=== PATIENT | male | born 1980 | race Caucasian/White ===

== ENCOUNTER 2016-12-30 12:25 | Emergency (ER) | payer MEDICAID ==
--- NOTE | 2016-12-30 13:01 | ER Document Report ---
ED Medical Screen (RME) - General Chief Complaint: Skin Sore(s) Stated Complaint: LEG WOUNDS Time seen by provider: 12:59 Mode of Arrival: Ambulatory Information source: Patient Notes: 36 yo male with chronic lymph edema for 12 years c/o worsening pain and sores since he quit going to the wound care clinic 1 year ago. No fever. No hx DM> TRAVEL OUTSIDE OF THE [place] IN LAST 30 DAYS: No - Related Data Allergies/Adverse Reactions: alprazolam [From Xanax] Allergy (Verified 12/30/16 12:40) Abnormal behavior trazodone [Trazodone] Allergy (Verified 12/30/16 12:40) Abnormal behavior Past Medical History - Past Medical History Cardiac Medical History: Reports: Hx Hypercholesterolemia, Hx Hypertension, Hx Peripheral Vascular Disease, Hx Pulmonary Embolism Denies: Hx Coronary Artery Disease, Hx Heart Attack Pulmonary Medical History: Denies: Hx Asthma, Hx Bronchitis, Hx COPD, Hx Pneumonia Neurological Medical History: Denies: Hx Cerebrovascular Accident Renal/ Medical History: Denies: Hx Peritoneal Dialysis GI Medical History: Reports: Hx Gastroesophageal Reflux Disease Musculoskeltal Medical History: Reports Hx Arthritis - osteo Psychiatric Medical History: Reports: Hx Bipolar Disorder, Hx Depression, Hx Schizophrenia - Immunizations Hx Diphtheria, Pertussis, Tetanus Vaccination: Yes Physical Exam - Vital signs Vitals: Temp Pulse Resp BP Pulse Ox 98.5 F 92 20 144/96 H 97 12/30/16 12:41 12/30/16 12:41 12/30/16 12:41 12/30/16 12:41 12/30/16 12:41 Course - Vital Signs Vital signs: Temp Pulse Resp BP Pulse Ox 98.5 F 92 20 144/96 H 97 12/30/16 12:41 12/30/16 12:41 12/30/16 12:41 12/30/16 12:41 12/30/16 12:41
[2016-12-30 13:37] LABS: ABSOLUTE EOSINOPHILS # (AUTO) 0.1 10^3/uL (0.0-0.6); ABSOLUTE LYMPHOCYTES (AUTO) 1.2 10^3/uL (0.5-4.7); ABSOLUTE MONOCYTES (AUTO) 0.5 10^3/uL (0.1-1.4); ABSOLUTE NEUT (AUTO) 4.6 10^3/uL (1.7-8.2); BASOPHILS % (AUTO) 0.4 % (0-2); EOSINOPHILS % (AUTO) 1.5 % (0-6); HEMATOCRIT 37.4 % (37.9-51.0); HEMOGLOBIN 12.3 g/dL (13.5-17.0); HGB HCT DIFFERENCE -0.5; LYMPHOCYTES % (AUTO) 18.4 % (13-45); MEAN CORPUSCULAR HEMOGLOBIN 25.6 pg (27.0-33.4); MEAN CORPUSCULAR VOLUME 78 fl (80-97); MONOCYTES % (AUTO) 7.5 % (3-13); RED BLOOD COUNT 4.82 10^6/uL (4.35-5.55); RED CELL DISTRIBUTION WIDTH 17.8 % (11.5-14.0); SEGMENTED NEUTROPHILS % (AUTO) 72.2 % (42-78); WHITE BLOOD COUNT 6.4 10^3/uL (4.0-10.5)
[2016-12-30 13:55] LABS: ALANINE AMINOTRANSFERASE 23 U/L (21-72); ALBUMIN 3.9 g/dL (3.5-5.0); ALKALINE PHOSPHATASE 80 U/L (38-126); ANION GAP 11 (5-19); ASPARTATE AMINO TRANSFERASE 22 U/L (17-59); BILIRUBIN,DIRECT 0.3 mg/dL (0.0-0.4); BILIRUBIN,TOTAL 0.9 mg/dL (0.2-1.3); BLOOD UREA NITROGEN 9 mg/dL (7-20); CALCIUM 8.9 mg/dL (8.4-10.2); CARBON DIOXIDE 28 mmol/L (22-30); CHLORIDE 104 mmol/L (98-107); CREATININE RESULT 0.89 mg/dL (0.52-1.25); GLUCOSE 95 mg/dL (75-110); POTASSIUM 4.4 mmol/L (3.6-5.0); SODIUM 143.4 mmol/L (137-145); TOTAL PROTEIN 7.3 g/dL (6.3-8.2)
--- NOTE | 2016-12-30 17:44 | ER Document Report ---
ED Skin Rash/Insect Bite/Abscs - General Mode of Arrival: Ambulatory Information source: Patient TRAVEL OUTSIDE OF THE [place] IN LAST 30 DAYS: No - HPI Patient complains to provider of: Skin rash/lesion, Tender/swollen area Onset: Other - chronic Quality of rash: Painful Similar symptoms previously: Yes <ELIZABETH MCDONALD - Last Filed: 12/30/16 18:44> <PAT GOEL - Last Filed: 12/30/16 21:43> - General Chief Complaint: Skin Sore(s) Stated Complaint: LEG WOUNDS Notes: Patient is a 36-year-old male that presents to the emergency department today with complaints of bilateral leg swelling with associated ulcers. Patient has a history of lymphedema. Patient states that he has been to the wound care clinic in the past for this however he was discharged because the wounds healed up. Patient states he has not been back since and he is here to receive a referral back to the wound care center. Patient denies any fevers. (ELIZABETH MCDONALD) - Related Data Allergies/Adverse Reactions: alprazolam [From Xanax] Allergy (Verified 12/30/16 12:40) Abnormal behavior trazodone [Trazodone] Allergy (Verified 12/30/16 12:40) Abnormal behavior Past Medical History - General Information source: Patient - Social History Smoking Status: Never Smoker Cigarette use (# per day): No Frequency of alcohol use: None Drug Abuse: None Lives with: Family Family History: Reviewed & Not Pertinent Patient has suicidal ideation: No Patient has homicidal ideation: No - Past Medical History Cardiac Medical History: Reports: Hx Hypercholesterolemia, Hx Hypertension, Hx Peripheral Vascular Disease, Hx Pulmonary Embolism GI Medical History: Reports: Hx Gastroesophageal Reflux Disease Musculoskeltal Medical History: Reports Hx Arthritis - osteo Psychiatric Medical History: Reports: Hx Bipolar Disorder, Hx Depression, Hx Schizophrenia Surgical Hx: Negative - Immunizations Hx Diphtheria, Pertussis, Tetanus Vaccination: Yes <ELIZABETH MCDONALD - Last Filed: 12/30/16 18:44> <PAT GOEL - Last Filed: 12/30/16 21:43> - Medical History Notes: chronic lymphedema (ELIZABETH MCDONALD) Review of Systems - Review of Systems Constitutional: denies: Fever EENT: No symptoms reported Cardiovascular: No symptoms reported Respiratory: No symptoms reported Gastrointestinal: No symptoms reported Genitourinary: No symptoms reported Male Genitourinary: No symptoms reported Musculoskeletal: See HPI, Other - bilateral leg swelling Skin: See HPI, Other - ulcers to bilateral lower extremities Hematologic/Lymphatic: No symptoms reported Neurological/Psychological: No symptoms reported <TAMARAELIZABETH - Last Filed: 12/30/16 18:44> Physical Exam <ELIZABETH MCDONALD - Last Filed: 12/30/16 18:44> <PAT GOEL - Last Filed: 12/30/16 21:43> - Vital signs Vitals: Temp Pulse Resp BP Pulse Ox 98.5 F 92 20 144/96 H 97 12/30/16 12:41 12/30/16 12:41 12/30/16 12:41 12/30/16 12:41 12/30/16 12:41 - Notes Notes: Physical Exam: General: Alert. HEENT: Normocephalic. Atraumatic. PERRL. Extraocular movements intact. Oropharynx clear. Neck: Supple. Non-tender. Respiratory: No respiratory distress. Clear and equal breath sounds bilaterally. Cardiovascular: Regular rate and rhythm. Abdominal: Obese. Non-tender. No distension. Normal Bowel Sounds. Back: Non-tender. No deformity or step off. Extremities: Moves all four extremities. Upper extremities: Normal inspection. Normal ROM. Lower extremities: lymphedema bilaterally with open wounds bilaterally, no surrounding erythema or warmth. Neurological: Normal cognition. AAOx4. Normal speech. Psychological: Normal affect. Normal Mood. Skin: see lower extremity (ELIZABETH MCDONALD) Course - Laboratory Result Diagrams: 12/30/16 13:15 12/30/16 13:15 <ELIZABETH MCDONALD - Last Filed: 12/30/16 18:44> - Laboratory Result Diagrams: 12/30/16 13:15 12/30/16 13:15 <PAT GOEL - Last Filed: 12/30/16 21:43> - Re-evaluation Re-evalutation: 12/30/16 Patient with chronic lymphedema and open wounds on his legs. No evidence for infection at this time. This is been going on for quite some time. Patient was seen by surgery, Dr. Michaels who recommend Xeroform, ABDs, and Dane wraps. The patient will be given referral to the wound clinic. Patient will also be given pain medication. He is afebrile with stable vitals. Patient will also have a social work consults to follow-up with him to try to provide nursing and wound care. Patient agrees with this plan. Stable for discharge. (PAT GOEL) - Vital Signs Vital signs: Temp Pulse Resp BP Pulse Ox 98.5 F 79 16 135/81 H 99 12/30/16 12:41 12/30/16 19:48 12/30/16 19:48 12/30/16 19:48 12/30/16 19:48 - Laboratory Laboratory results interpreted by me: 12/30/16 13:15 Hgb 12.3 L Hct 37.4 L MCV 78 L MCH 25.6 L RDW 17.8 H Discharge <ELIZABETH MCDONALD - Last Filed: 12/30/16 18:44> <PAT GOEL - Last Filed: 12/30/16 21:43> - Discharge Clinical Impression: Lymphedema, Open leg wound Condition: Stable Disposition: HOME, SELF-CARE Instructions: Lymphedema ([facility]), Dressing Instructions for Open Wounds ([facility]) Prescriptions: Oxycodone HCl/Acetaminophen [Percocet 5-325 mg Tablet] 1 tab PO TIDP PRN #20 tablet PRN Reason: Referrals: Wound Care [Provider Group] - Follow up as needed Scribe Attestation: 12/30/16 21:43 I personally performed the services described in the documentation, reviewed and edited the documentation which was dictated to the scribe in my presence, and it accurately records my words and actions. (PAT GOEL) Scribe Documentation - Scribe Written by Paul:: Paul Su, 12/30/2016 [id number] acting as scribe for :: Lilly <ELIZABETH MCDONALD - Last Filed: 12/30/16 18:44>
[2016-12-30] MEDS ORDERED: OXYCODONE-ACETAMINOPHEN 5-325 MG TABLET PO ONE (19:05)
[2016-12-30 19:49] VITALS: BP 135/81
== END 2016-12-30 19:48 | disposition home or self-care (01) ==
LOC: ER 12:25
DX: S81.809A Unspecified open wound, unspecified lower leg, initial encounter (principal); I89.0 Lymphedema, not elsewhere classified; L98.9 Disorder of the skin and subcutaneous tissue, unspecified; M79.89 Other specified soft tissue disorders; X58.XXXA Exposure to other specified factors, initial encounter
CPT/HCPCS: 36415; 80053; 85025; 87040; 87077; 99283

== ENCOUNTER → 2017-02-03 | Outpatient (CLI) | payer MEDICAID ==
--- NOTE | 2017-02-03 17:23 | XCELERA REPORT ---
[address] [address] Lower Extremity Arterial Evaluation Name: SIGIFREDO PACE Age: 36 yrs Gender: Male : 1980 Patient Status: Outpatient Patient Location: Study Date: 02/03/2017 10:20 AM Procedure: A color flow and duplex scan of the lower extremity arteries was performed bilaterally with velocity and waveform anaylsis. Ankle brachial indicies performed. Reason For Study: ULCER Ordering Physician: RICO AGUILAR Performed By: Raymundo Kuhn Measurements and Calculations Right Left SHIPPING SUPPORT PSV 84.9 98.7 cm/sec Mid SFA PSV -124.9 -98.7 cm/sec Dist Pop A PSV 118.6 100.4 cm/sec Dist PEDRO PSV 118.6 114.7 cm/sec Ronaldo Pedis PSV 91.8 95.2 cm/sec Right Side Arterial Evaluation Normal velocity and triphasic waveforms noted from the Common Femoral artery to the infrageniculate vessels. 0 % stenosis. Ankle Brachial index is 1.3. Left Side Arterial Evaluation Normal velocity and triphasic waveforms noted from the Common Femoral artery to the infrageniculate vessels. 0 % stenosis. Ankle Brachial index is 1.2.. Interpretation Summary No hemodynamically significant lesions in the bilateral lower extremities, on duplex imaging, at rest. : RICO AGUILAR > Jv Vela
--- NOTE | 2017-02-03 18:49 | XCELERA REPORT ---
[address] [address] Lower Extremity Venous Evaluation Name: SIGIFREDO PACE Age: 36 yrs Gender: Male : 1980 Patient Status: Outpatient Patient Location: Study Date: 02/03/2017 10:38 AM Procedure: A bilateral duplex scan of the lower extremity veins was performed. The evaluation included responses to compression and other maneuvers with patient in the supine and standing positions to assess venous insufficiency. Reason For Study: ULCER Ordering Physician: RICO AGUILAR Performed By: Raymundo Kuhn Right Sided Venous Evaluation Deep venous system evaluation shows patent veins with no obstruction or significant reflux identified. Sapheno Femoral junction: no reflux. Femoral vein reflux: no reflux. Greater Saphenous vein, Proximal thigh: reflux: no reflux. Greater Saphenous vein, Distal thigh: reflux:no reflux. Greater Saphenous vein, Proximal below knee: reflux: no reflux. No significant Perforators identified. Left Sided Venous Evaluation Deep venous system evaluation shows patent veins with no obstruction or significant reflux identified. Sapheno Femoral junction: no reflux. Femoral vein reflux: no reflux. Greater Saphenous vein, Proximal thigh: reflux: no reflux. Greater Saphenous vein, Distal thigh: reflux:no reflux. Greater Saphenous vein, Proximal below knee: reflux: 1.7 second reflux. 8 mm vessel. No significant Perforators identified. Interpretation Summary No duplex evidence of DVT or obstruction in the bilateral lower extremities. Very limited superficial reflux identified. Presence of bandages and large body habitus made study a challenge. : RICO AGUILAR > Jv Vela
== END ==
LOC: SP 08:52
PROVIDERS: ATTEND Plastic Surgery
DX: L97.212 Non-pressure chronic ulcer of right calf with fat layer exposed (principal); L97.222 Non-pressure chronic ulcer of left calf with fat layer exposed
CPT/HCPCS: 93925; 93970

== ENCOUNTER 2017-06-26 09:31 | Emergency (ER) | payer MEDICAID ==
--- NOTE | 2017-06-26 10:06 | ER Document Report ---
ED Psych Disorder / Suicide - General Mode of Arrival: Ambulatory Information source: Patient TRAVEL OUTSIDE OF THE [place] IN LAST 30 DAYS: No - HPI Patient complains to provider of: Suicidal ideation, Suicidal attempt Onset: Other - last week <ELIZABETH MCDONALD - Last Filed: 06/26/17 12:32> <SONG HALE - Last Filed: 06/26/17 14:37> - General Chief Complaint: Suicidal Ideation Stated Complaint: SUICIDIAL IDEATIONS Time Seen by Provider: 06/26/17 09:54 Notes: Patient is a 37 year old male that presents to the emergency department today with complaints of suicidal ideation. Patient states that he took approximately 15 Paxil, Klonopin, Lunesta last night in a suicide attempt. Patient states he has a diagnosed history of bipolar and depression. (ELIZABETH MCDONALD) - Related Data Allergies/Adverse Reactions: alprazolam [From Xanax] Allergy (Verified 06/26/17 09:42) Abnormal behavior trazodone [Trazodone] Allergy (Verified 06/26/17 09:42) Abnormal behavior Home Medications: Current Home Medications Clonazepam 0.5 mg PO BID PRN 06/26/17 [History] Eszopiclone [Lunesta] 2 mg PO QHS 06/26/17 [History] Paroxetine HCl 40 mg PO QAM 06/26/17 [History] Past Medical History - General Information source: Patient - Social History Smoking Status: Current Every Day Smoker Cigarette use (# per day): Yes Frequency of alcohol use: None Drug Abuse: None Lives with: Family Family History: Reviewed & Not Pertinent Patient has suicidal ideation: Yes Patient has homicidal ideation: No - Past Medical History Cardiac Medical History: Reports: Hx Hypercholesterolemia, Hx Hypertension, Hx Peripheral Vascular Disease, Hx Pulmonary Embolism GI Medical History: Reports: Hx Gastroesophageal Reflux Disease Musculoskeltal Medical History: Reports Hx Arthritis - osteo Psychiatric Medical History: Reports: Hx Bipolar Disorder, Hx Depression, Hx Schizophrenia Surgical Hx: Negative - Immunizations Hx Diphtheria, Pertussis, Tetanus Vaccination: Yes <ELIZABETH MCDONALD - Last Filed: 06/26/17 12:32> Review of Systems - Review of Systems Constitutional: No symptoms reported EENT: No symptoms reported Cardiovascular: No symptoms reported Respiratory: No symptoms reported Gastrointestinal: No symptoms reported Genitourinary: No symptoms reported Male Genitourinary: No symptoms reported Musculoskeletal: No symptoms reported Skin: No symptoms reported Hematologic/Lymphatic: No symptoms reported Neurological/Psychological: See HPI, Suicidal ideation -: Yes All other systems reviewed and negative <TAMARAELIZABETH - Last Filed: 06/26/17 12:32> Physical Exam <TAMARAELIZABETH - Last Filed: 06/26/17 12:32> <SONG HALE - Last Filed: 06/26/17 14:37> - Vital signs Vitals: Temp Pulse Resp BP Pulse Ox 97.5 F 99 18 129/93 H 98 06/26/17 09:41 06/26/17 09:41 06/26/17 09:41 06/26/17 09:41 06/26/17 09:41 - Notes Notes: Physical Exam: General: Alert, appears well. HEENT: Normocephalic. Atraumatic. PERRLA. Extraocular movements intact. Oropharynx clear. Large holes in ear lobe consistent with previous gauge placement. Neck: Supple. Respiratory: No respiratory distress. Abdominal: Morbidly obese. No distension. Extremities: Moves all four extremities. Neurological: ormal cognition. AAOx4. Normal speech. Psychological: Normal affect. Normal Mood. Skin: Warm. Dry. Normal color. (ELIZABETH MCDONALD) Course - Laboratory Result Diagrams: 06/26/17 10:36 06/26/17 10:36 <TAMARAELIZABETH - Last Filed: 06/26/17 12:32> - Laboratory Result Diagrams: 06/26/17 10:36 06/26/17 10:36 - EKG Interpretation by Ne EKG shows normal: Sinus rhythm, [place], Intervals, QRS Complexes, ST-T Waves Rate: Normal - 69 Rhythm: NSR [place]/QRS: RBBB, LAHB/LAFB When compared to previous EKG there are: No significant change <SONG HALE - Last Filed: 06/26/17 14:37> - Re-evaluation Re-evalutation: 06/26/17 14:34 The patient was seen by Bishnu Bran, IVC paperwork was filled out and sent to the commercial insulator. (SONG HALE) - Vital Signs Vital signs: Temp Pulse Resp BP Pulse Ox 97.5 F 99 18 129/93 H 98 06/26/17 09:41 06/26/17 09:41 06/26/17 09:41 06/26/17 09:41 06/26/17 09:41 - Laboratory Laboratory results interpreted by me: 06/26/17 06/26/17 06/26/17 10:36 10:36 10:36 RBC 5.70 H RDW 15.1 H Glucose 64 L Urine Protein 30 H Urine Ketones TRACE H Urine Urobilinogen 2.0 H Salicylates < 1.0 L Acetaminophen < 10 L Discharge <ELIZABETH MCDONALD - Last Filed: 06/26/17 12:32> <SONG HALE - Last Filed: 06/26/17 14:37> - Discharge Clinical Impression: Depression with suicidal ideation Overdose Qualifiers: Encounter type: initial encounter Injury intent: intentional self-harm Qualified Code(s): T50.902A - Poisoning by unspecified drugs, medicaments and biological substances, intentional self-harm, initial encounter Condition: Stable Disposition: PSYCH HOSP/UNIT Referrals: AMADO MENDOZA DO [Primary Care Provider] - Follow up as needed Scribe Attestation: 06/26/17 11:55 I personally performed the services described in the documentation, reviewed and edited the documentation which was dictated to the scribe in my presence, and it accurately records my words and actions. (SONG HALE) Scribe Documentation - Scribe Written by Scribe:: Paul Su, 06/26/2017 [id number] acting as scribe for :: Jony <ELIZABETH MCDONALD - Last Filed: 06/26/17 12:32>
[2017-06-26 10:53] LABS: ABSOLUTE EOSINOPHILS # (AUTO) 0.1 10^3/uL (0.0-0.6); ABSOLUTE LYMPHOCYTES (AUTO) 0.9 10^3/uL (0.5-4.7); ABSOLUTE MONOCYTES (AUTO) 0.4 10^3/uL (0.1-1.4); ABSOLUTE NEUT (AUTO) 3.9 10^3/uL (1.7-8.2); BASOPHILS % (AUTO) 0.3 % (0-2); EOSINOPHILS % (AUTO) 1.5 % (0-6); HEMATOCRIT 47.2 % (37.9-51.0); HGB HCT DIFFERENCE 0.8; LYMPHOCYTES % (AUTO) 16.3 % (13-45); MEAN CORPUSCULAR HEMOGLOBIN 28.1 pg (27.0-33.4); MEAN CORPUSCULAR HGB CONC 33.9 g/dL (32.0-36.0); MEAN CORPUSCULAR VOLUME 83 fl (80-97); MONOCYTES % (AUTO) 7.3 % (3-13); RED CELL DISTRIBUTION WIDTH 15.1 % (11.5-14.0); SEGMENTED NEUTROPHILS % (AUTO) 74.6 % (42-78); WHITE BLOOD COUNT 5.3 10^3/uL (4.0-10.5)
[2017-06-26 10:59] LABS: APPEARANCE,URINE SLIGHTLY-CLOUDY; BILIRUBIN,URINE NEGATIVE (NEGATIVE); CALCIUM OXALATE CRYSTALS,URINE RARE /HPF; GLUCOSE, URINE NEGATIVE (NEGATIVE); KETONES,URINE TRACE mg/dL (NEGATIVE); LEUKOCYTE ESTERASE,URINE NEGATIVE (NEGATIVE); NITRITE,URINE NEGATIVE (NEGATIVE); PROTEIN,URINE 30 mg/dL (NEGATIVE)
[2017-06-26 11:12] LABS: ALANINE AMINOTRANSFERASE 27 U/L (21-72); ALBUMIN 4.1 g/dL (3.5-5.0); ALKALINE PHOSPHATASE 69 U/L (38-126); ANION GAP 12 (5-19); ASPARTATE AMINO TRANSFERASE 20 U/L (17-59); BILIRUBIN,DIRECT 0.4 mg/dL (0.0-0.4); BILIRUBIN,TOTAL 1.1 mg/dL (0.2-1.3); BLOOD UREA NITROGEN 9 mg/dL (7-20); CARBON DIOXIDE 25 mmol/L (22-30); CHLORIDE 103 mmol/L (98-107); CREATININE RESULT 1.05 mg/dL (0.52-1.25); GLUCOSE 64 mg/dL (75-110); POTASSIUM 4.1 mmol/L (3.6-5.0); SODIUM 139.6 mmol/L (137-145); TOTAL PROTEIN 6.8 g/dL (6.3-8.2)
[2017-06-26 11:13] LABS: ALCOHOL < 10 mg/dL (NONE DETECTED)
--- NOTE | 2017-06-26 11:15 | EKG REPORT ---
SEVERITY:- ABNORMAL ECG - SINUS RHYTHM RBBB AND LAFB : Confirmed by: Radha Yoon MD 26-Jun-2017 11:14:54
[2017-06-26 11:38] LABS: URINE BARBITURATES SCREEN NEGATIVE; URINE METHADONE SCREEN NEGATIVE; URINE OPIATES LOW NEGATIVE; URINE PHENCYCLIDINE SCREEN NEGATIVE
--- NOTE | 2017-06-27 09:56 | ER Document Report ---
Doctor's Note Notes: 06/27/17 09:55 This is a 37-year-old male with acute psychosis here for suicidal ideation. Patient is very tearful. Will definitely need inpatient evaluation. Will follow the consult of mental health provider. Denies any complaints currently at this time. Not requesting any medications or other issues.
[2017-06-27 13:11] VITALS: BP 117/67
== END 2017-06-27 13:45 ==
LOC: ER 09:31
DX: T50.902A Poisoning by unspecified drugs, medicaments and biological substances, intentional self-harm, initial encounter (principal); F32.9 Major depressive disorder, single episode, unspecified; Z79.899 Other long term (current) drug therapy; F17.210 Nicotine dependence, cigarettes, uncomplicated
CPT/HCPCS: 36415; 80053; 80307; 81001; 85025; 93005; 93010; 99285

== ENCOUNTER → 2017-10-28 | Outpatient (CLI) | payer MEDICAID ==
--- NOTE | 2017-10-29 10:09 | XCELERA REPORT ---
[address] [address] Lower Extremity Arterial Evaluation Name: SIGIFREDO PACE Age: 37 yrs Gender: Male : 1980 Patient Status: Outpatient Patient Location: Study Date: 10/28/2017 09:51 AM Procedure: A color flow and duplex scan of the lower extremity arteries was performed bilaterally with velocity and waveform analysis. Reason For Study: ULCER Ordering Physician: RICO AGUILAR Performed By: Tahmina Ledezma Measurements and Calculations Right Left MARKETING CAMPAIGN ANALYST PSV 85.6 100.6 cm/sec Prox PFA PSV 52.4 47.5 cm/sec Prox SFA PSV 85.6 101.2 cm/sec Mid SFA PSV -68.4 -66.0 cm/sec Dist SFA PSV -55.5 -84.5 cm/sec Prox Pop A PSV 68.4 56.6 cm/sec Dist PEDRO PSV 27.7 25.9 cm/sec Dist MINIATURE MODEL MAKER PSV 102.6 cm/sec Ronaldo Pedis PSV 102.6 81.6 cm/sec Right Side Arterial Evaluation Normal velocity and triphasic waveforms noted from the Common Femoral artery to the Anterior Tibial artery..The Posterior Tibial artery is occluded . 0-19% Occlusion at the Posterior Tibial artery Ankle Brachial index was not done. Left Side Arterial Evaluation Normal velocity and triphasic waveforms noted from the Common Femoral artery to the infrageniculate vessels. 0 % stenosis . Ankle Brachial index was not done. Interpretation Summary Mild hemodynamically significant lesions in the right lower extremity only, on duplex imaging, at rest. No hemodynamically significant lesions in the left lower extremity only, on duplex imaging, at rest. : RICO AGUILAR > Jv Vela
== END ==
LOC: SP 09:21
PROVIDERS: ATTEND Plastic Surgery
DX: L97.222 Non-pressure chronic ulcer of left calf with fat layer exposed (principal)
CPT/HCPCS: 93925